=== PATIENT | female | born 1955 | race Caucasian/White ===

== ENCOUNTER 2019-09-11 10:09 | Emergency (ER) | payer OTHER ==
[~2019-09-11] VITALS: Ht 157.5 cm; Wt 115.7 kg
--- NOTE | 2019-09-11 10:40 | NUR ---
RECTAL BLEEDING BRIGHT RED X LAST NIGHT. PATIENT A/OX4, BREATHING EVEN AND UNLABORED, NOS OB NOTED, NEEDS ATTENDED, ATTACHED TO THE [employer] AND TESTER.
[2019-09-11] MEDS ORDERED: DICYCLOMINE HCL 10 MG CAPSULE PO ONE (10:56)
[2019-09-11] MEDS: DICYCLOMINE HCL 10 MG CAPSULE PO ONE (10:58)
[2019-09-11 11:04] LABS: LYMPHOCYTES # (AUTO) 1.4 /CMM (0.8-4.8); MONOCYTES # (AUTO) 0.4 /CMM (0.1-1.30)
[2019-09-11 11:08] LABS: BASOPHILS % (AUTO) 0.3 % (0.0-2.0); EOSINOPHILS % (AUTO) 0.5 % (0.0-6.0); HEMATOCRIT 46 % (33-45); HEMOGLOBIN 15.4 g/dL (11.5-14.8); MEAN CORPUSCULAR HGB CONC 33 g/dl (31.0-36.0); MEAN CORPUSCULAR VOLUME 88 fL (82-100); MONOCYTES % (AUTO) 4.3 % (2.0-12.0); NEUTROPHILS # (AUTO) 6.9 /CMM (1.8-8.9); NEUTROPHILS % (AUTO) 78.9 % (43.0-81.0); PLATELET COUNT (AUTO) 268 /CMM (150-450); RED BLOOD CELL COUNT(AUTO) 5.26 MIL/uL (4.0-5.2); WHITE BLOOD COUNT (AUTO) 8.8 K/uL (4.3-11.0)
[2019-09-11 11:13] LABS: CALCIUM, SERUM 9.4 mg/dL (8.5-10.1); CREATININE 0.8 mg/dL (0.6-1.3); POTASSIUM 4.5 mmol/L (3.5-5.1)
[2019-09-11 11:18] LABS: ALBUMIN 3.8 g/dL (3.4-5.0); BILIRUBIN,DIRECT 0.1 mg/dL (0.0-0.2); BILIRUBIN,TOTAL 0.5 mg/dL (0.2-1.0); TOTAL PROTEIN, SERUM 7.4 g/dL (6.4-8.2)
[2019-09-11] MEDS ORDERED: IOHEXOL-300 100 ML VIAL IV ONE (11:33)
[2019-09-11] MEDS ORDERED: CT SWABBABLE VALVE TRANS SET 1 EA INFUS.SET MC ONE (11:33)
[2019-09-11] MEDS ORDERED: IV NS 0.9% 250 ML IV ONE (11:33)
--- NOTE | 2019-09-11 12:57 | NUR ---
A/OX4, DENIES PAIN AT THIS TIME. NO DISTRESS NOTED. BREATHING EVEN AND UNLABORED, NO SOB NOTED. IV removed. Catheter intact and site benign. Pressure and 4x4 applied to site. No bleeding noted.Patient discharged to home in stable condition. Written and verbal after care instructions given. Patient verbalizes understanding of instruction.
[2019-09-11 12:58] VITALS: BP 135/75
== END 2019-09-11 12:58 | disposition home or self-care (01) ==
LOC: ER 10:15
DX: K52.9 Noninfective gastroenteritis and colitis, unspecified (principal); E78.5 Hyperlipidemia, unspecified; Z98.890 Other specified postprocedural states
CPT/HCPCS: 36415; 74177; 80048; 80076; 83690; 85025; 85730; 99284; J7050; Q9967